=== PATIENT | female | born 1990 | race Two or more races ===

== ENCOUNTER 2019-06-22 11:26 | Day surgery (SDC) | payer OTHER ==
[2019-06-22] MEDS ORDERED: CEFAZOLIN SODIUM 1 GM in DEXTROSE 5%-WATER 50 ML IV PRN (11:57)
[2019-06-22 12:25] LABS: HEMATOCRIT 38.9 % (36.0-47.0); HEMOGLOBIN 13.2 g/dL (12.0-15.5); MEAN CORPUSCULAR HEMOGLOBIN 33.1 pg (27.0-33.4); MEAN CORPUSCULAR VOLUME 97 fl (80-97); PLATELET COUNT 276 10^3/uL (150-450)
[2019-06-22] MEDS ORDERED: PROPOFOL INJ 200 MG/20 ML VIAL IV ONE (12:28)
[2019-06-22] MEDS ORDERED: MIDAZOLAM 2 MG/2 ML INJ ONE (12:28)
[2019-06-22] MEDS ORDERED: FENTANYL CITRATE INJ/PF 100 MCG/2 ML AMPUL ONE (12:28)
[2019-06-22] MEDS ORDERED: LIDOCAINE 1% INJ-PF (10 MG/ML) 30 ML SDV ONE (12:30)
[2019-06-22 12:34] LABS: APPEARANCE,URINE SLIGHTLY-CLOUDY; BILIRUBIN,URINE NEGATIVE (NEGATIVE); COLOR,URINE YELLOW; GLUCOSE, URINE NEGATIVE (NEGATIVE); KETONES,URINE TRACE mg/dL (NEGATIVE); LEUKOCYTE ESTERASE,URINE MODERATE (NEGATIVE); NITRITE,URINE NEGATIVE (NEGATIVE); PROTEIN,URINE 30 mg/dL (NEGATIVE); URINE SPECIFIC GRAVITY 1.027; UROBILINOGEN,URINE NEGATIVE mg/dL (<2.0)
[2019-06-22 12:43] LABS: ALBUMIN 4.7 g/dL (3.5-5.0); ALKALINE PHOSPHATASE 78 U/L (38-126); ANION GAP 12 (5-19); ASPARTATE AMINO TRANSFERASE 48 U/L (14-36); BILIRUBIN,DIRECT 0.2 mg/dL (0.0-0.4); BILIRUBIN,TOTAL 0.3 mg/dL (0.2-1.3); BLOOD UREA NITROGEN 13 mg/dL (7-20); CARBON DIOXIDE 28 mmol/L (22-30); CHLORIDE 103 mmol/L (98-107); GLUCOSE 93 mg/dL (75-110); POTASSIUM 4.6 mmol/L (3.6-5.0); TOTAL PROTEIN 7.9 g/dL (6.3-8.2)
[2019-06-22] MEDS ORDERED: METHYLERGONOVINE MALEATE INJ/PF 0.2 MG/1 ML AMPULE ONE (13:27)
[2019-06-22] MEDS ORDERED: MEPERIDINE HCL/PF INJ 25 MG/1 ML DISP.SYRIN IV PRN (13:29)
[2019-06-22] MEDS ORDERED: PROMETHAZINE HCL INJ 25 MG/1 ML VIAL IV PRN ×3 (13:29→14:11)
[2019-06-22] MEDS ORDERED: FENTANYL CITRATE INJ/PF 100 MCG/2 ML AMPUL IV PRN ×3 (13:29)
[2019-06-22] MEDS ORDERED: ONDANSETRON HCL INJ/PF 4 MG/2 ML SDV IV PRN (13:29)
[2019-06-22] MEDS ORDERED: OXYCODONE-ACETAMINOPHEN 5-325 MG TABLET PO PRN ×4 (13:29→14:11)
[2019-06-22] MEDS ORDERED: DIPHENHYDRAMINE HCL 50 MG/ML VIAL IV PRN (13:29)
[2019-06-22] MEDS ORDERED: MORPHINE SULFATE 10 MG/ML INJ IV PRN (13:29)
[2019-06-22] MEDS ORDERED: ACETAMINOPHEN 1,000 MG/100 ML RTUPB IV ONE (13:56)
[2019-06-22] MEDS ORDERED: KETOROLAC TROMETHAMINE INJ/PF 30 MG/1 ML SDV ONE (13:56)
--- NOTE | 2019-06-22 14:18 | Operative Report ---
Operative Report DATE OF SURGERY: 06/22/19 PREOPERATIVE DIAGNOSIS: Incomplete POSTOPERATIVE DIAGNOSIS: same OPERATION: Suction D&C SURGEON: deb ANESTHESIA: GA TISSUE REMOVED OR ALTERED: Products of conception COMPLICATIONS: None INTRAOPERATIVE FINDINGS: Findings were consistent with incomplete AB PROCEDURE: Patient was brought into the operating room and placed on the table in a supine position. Patient was then inducted under general anesthesia. Patient was repositioned in a dorsolithotomy position prepped and draped in a sterile fashion. The bladder was drained of 25 cc of clear yellow urine. A pelvic was done under anesthesia with the findings consistent with incomplete . A weighted speculum was then inserted into the vagina. The cervix is grasped on its anterior lip with a single-tooth tenaculum and an Allis. The cervix was dilated to a #10 Hegar dilated. A #10 suction curette was then gently inserted through the cervix until the fundus of the uterine cavity was reached. The suction D&C was then enabled. The suction catheter was then gently rotated as it was removed. This remove the bulk of the tissue. A medium size sharp curette was then used to curette the Endo vitreal cavity. There was no further tissue return. The tenaculum and the Allis were removed from the cervix. Any remaining blood in the vagina was removed with a sponge forceps. Patient tolerated the procedure well. Anesthesia was then discontinued and the patient was placed back in a supine position. Patient was transferred to the recovery room in satisfactory condition estimated blood loss 30 cc.
[2019-06-22] MEDS ORDERED: OXYCODONE-ACETAMINOPHEN 5-325 MG TABLET ONE (14:33)
[2019-06-22 16:54] VITALS: BP 103/63
== END 2019-06-22 15:30 | disposition home or self-care (01) ==
LOC: OROUT 11:26
PROVIDERS: ATTEND Obstetrics & Gynecology
DX: O03.4 Incomplete spontaneous abortion without complication (principal)
CPT/HCPCS: 36415; 85027; 80053; 81001; 88305 ×2; 59812; J2250; J0690; J3010; J2210; J1885; J7060; J2704; J0131; 1965; J3490